=== PATIENT | female | born 1965 | race African-American/Black ===

== ENCOUNTER 2017-01-13 14:30 | Inpatient (IN) | payer BC, OTHER ==
[~2017-01-13] VITALS: Ht 152.4 cm; Wt 107.0 kg
[2017-01-13 15:22] LABS: Basophils # (auto) 0.1 uL; Basophils % (auto) 1.1 % (0.0-2.0); DEFINITIVE VIEW TRANSMISSION; Eosinophils # (auto) 0.2 uL; Eosinophils % (auto) 4.1 % (0.0-7.0); Hematocrit 29.9 % (36.0-46.0); Hemoglobin 9.6 g/dL (12.2-16.2); Lymphocytes # (auto) 1.5 uL; Lymphocytes % (auto) 27.8 % (10.0-50.0); Mean Corpuscular Hgb Conc. 31.9 g/dL (32.0-36.0); Mean Corpuscular Volume 68.9 fL (80.0-100.0); Mean Platelet Volume 9.4 fL (7.4-10.4); Monocytes # (auto) 0.3 uL; Monocytes % (auto) 5.4 % (0.0-12.0); Neutrophils # (auto) 3.3 uL; Neutrophils % (auto) 61.6 % (37.0-80.0); Platelet Count (auto) 256 10^3/uL (140-450); SUSPECT VIEW TRANSMISSION; White Blood Cell 5.4 10^3/uL (4.4-10.8)
[2017-01-13 15:24] LABS: Red Cell Distribution Width 22.3 % (11.6-16.0)
[2017-01-13] MEDS ORDERED: ASPirin 81 mg TAB PO ONE (15:30)
[2017-01-13] MEDS ORDERED: FUROSEMIDE 40 MG/4 ML VIAL IV ONE (15:30)
[2017-01-13] MEDS ORDERED: hydrALAZINE HCL 20 MG/ML VL IV ONE (15:30)
[2017-01-13] MEDS ORDERED: hydrALAZINE HCL 20 MG/ML VL IV PRN (15:45)
[2017-01-13] MEDS ORDERED: NITROGLYCERIN 0.4 MG SL TAB SL PRN (15:45)
[2017-01-13] MEDS ORDERED: MORPHINE SULF INJ 2 MG/ML SYRINGE 1ML IV PRN (15:45)
[2017-01-13 15:52] LABS: BUN/Creatinine Ratio 18.5; Bilirubin, Total 1.4 mg/dL (0.2-1.0); Calcium 8.6 mg/dL (8.5-10.1); Magnesium 2.1 mg/dL (1.6-2.6); Potassium 4.1 mmol/L (3.5-5.1); Total Protein 7.4 g/dL (6.4-8.2)
[2017-01-13 16:08] LABS: B-Type Natriuretic Peptide 1036.14 pg/mL (0-100); Temperature: 22.7 C (20.0-25.0)
[2017-01-13 18:26] LABS: Anisocytosis Moderate; Hypochromia Moderate; Microcytosis Moderate; Ovalocytes FEW; Platelet Estimate Adequate
[2017-01-13 18:27] LABS: Large Platelets FEW; Polychromasia Slight
[2017-01-13 19:45] VITALS: BP 154/102
[2017-01-13 20:00] VITALS: BP 159/100
[2017-01-13 20:27] VITALS: BP 154/102
[2017-01-13 22:00] VITALS: BP 159/100
[2017-01-13] MEDS: FUROSEMIDE 40 MG/4 ML VIAL IV SCH (22:05)
[2017-01-13] MEDS: ATORVASTATIN 20 MG TAB PO SCH (22:06)
[2017-01-13] MEDS: POTASSIUM CHL 20 Meq TABLET PO SCH (22:06)
[2017-01-13] MEDS: CARVEDILOL 12.5 MG TAB PO SCH (22:06)
[2017-01-14] MEDS ORDERED: SPIR25TA89 PO (04:36)
[2017-01-14] MEDS ORDERED: LISI-646 PO (04:36)
[2017-01-14] MEDS ORDERED: CARV12.544 PO (04:36)
[2017-01-14] MEDS ORDERED: ASPI-378 OR (04:36)
[2017-01-14] MEDS ORDERED: FURO40TA4 PO (04:36)
[2017-01-14 05:00] VITALS: BP 138/86
[2017-01-14] MEDS: FUROSEMIDE 40 MG/4 ML VIAL IV SCH (06:18)
[2017-01-14 06:43] LABS: Basophils # (auto) 0 uL; Basophils % (auto) 0.9 % (0.0-2.0); DEFINITIVE VIEW TRANSMISSION; Eosinophils # (auto) 0.2 uL; Eosinophils % (auto) 3.3 % (0.0-7.0); Hematocrit 32.5 % (36.0-46.0); Hemoglobin 10.2 g/dL (12.2-16.2); Lymphocytes # (auto) 1.1 uL; Lymphocytes % (auto) 20.4 % (10.0-50.0); Mean Corpuscular Hemoglobin 21.6 pg (28.0-32.0); Mean Corpuscular Hgb Conc. 31.4 g/dL (32.0-36.0); Mean Platelet Volume 10.1 fL (7.4-10.4); Monocytes # (auto) 0.4 uL; Neutrophils # (auto) 3.7 uL; Neutrophils % (auto) 68.4 % (37.0-80.0); Platelet Count (auto) 270 10^3/uL (140-450); SUSPECT VIEW TRANSMISSION; White Blood Cell 5.3 10^3/uL (4.4-10.8)
[2017-01-14 07:00] LABS: Calcium 9.5 mg/dL (8.5-10.1); INR 1.15 (0.9-1.15); Partial Thromboplastin Time 24.5 sec (22.64-33.71); Potassium 3.5 mmol/L (3.5-5.1)
[2017-01-14 07:03] LABS: BUN/Creatinine Ratio 14.5
[2017-01-14 07:22] LABS: Prothrombin Time 12.6 sec (9.37-12.3)
[2017-01-14 07:30] LABS: Red Cell Distribution Width 22.5 % (11.6-16.0)
[2017-01-14 08:22] LABS: Anisocytosis Moderate; Hypochromia Moderate; Microcytosis Moderate; Platelet Estimate Adequate
[2017-01-14 08:24] LABS: Burr Cells FEW; Large Platelets FEW; Ovalocytes FEW; Schistocytes FEW; Tear Drop Cells FEW
[2017-01-14 09:00] VITALS: BP 138/94
[2017-01-14] MEDS: POTASSIUM CHL 20 Meq TABLET PO SCH (09:14)
[2017-01-14] MEDS: LISINOPRIL 20 MG TAB PO SCH (09:14)
[2017-01-14] MEDS: SPIRONOLACTONE 25 MG TAB PO SCH (09:14)
[2017-01-14] MEDS: CARVEDILOL 12.5 MG TAB PO SCH ×2 (09:15→21:43)
[2017-01-14] MEDS: ASPirin 81 mg TAB PO SCH (09:15)
[2017-01-14 13:00] VITALS: BP 117/76
[2017-01-14 14:24] LABS: Urine Bilirubin Negative (Negative); Urine Blood TRACE /uL (Negative); Urine Color Yellow (Yellow); Urine Glucose Normal (Normal); Urine Ketone Negative (Negative); Urine Nitrite Negative (Negative); Urine RBC 4 /hpf (0 - 4); Urine Urobilinogen Normal (Negative); Urine pH 6.5 (5.0-8.0)
[2017-01-14 17:00] VITALS: BP 131/91
[2017-01-14] MEDS: ATORVASTATIN 20 MG TAB PO SCH (21:43)
[2017-01-14 22:00] VITALS: BP 142/88
[2017-01-14 23:30] VITALS: BP 138/73
[2017-01-15 05:00] VITALS: BP 121/88
[2017-01-15] MEDS ORDERED: POTASSIUM CHL 20 Meq TABLET PO ONE (07:15)
[2017-01-15 07:20] LABS: Potassium 3.6 mmol/L (3.5-5.1)
[2017-01-15 07:35] VITALS: BP 140/84
[2017-01-15] MEDS: SPIRONOLACTONE 25 MG TAB PO SCH (09:34)
[2017-01-15] MEDS: ASPirin 81 mg TAB PO SCH (09:34)
[2017-01-15] MEDS: LISINOPRIL 20 MG TAB PO SCH (09:35)
[2017-01-15] MEDS: CARVEDILOL 12.5 MG TAB PO SCH ×2 (09:36→22:08)
[2017-01-15] MEDS: FUROSEMIDE 40 MG/4 ML VIAL IV SCH (09:37)
[2017-01-15] MEDS: POTASSIUM CHL 20 Meq TABLET PO SCH (10:00)
[2017-01-15 12:04] VITALS: BP 149/91
[2017-01-15 15:50] VITALS: BP 122/72
[2017-01-15 20:52] VITALS: BP 143/63
[2017-01-15] MEDS: ATORVASTATIN 20 MG TAB PO SCH (22:07)
[2017-01-15 22:47] VITALS: BP 128/78
[2017-01-16 05:06] VITALS: BP 147/85
[2017-01-16 08:00] VITALS: BP 117/78
[2017-01-16] MEDS: FUROSEMIDE 40 MG/4 ML VIAL IV SCH (09:43)
[2017-01-16] MEDS: SPIRONOLACTONE 25 MG TAB PO SCH (09:43)
[2017-01-16] MEDS: CARVEDILOL 12.5 MG TAB PO SCH ×2 (09:44→22:07)
[2017-01-16] MEDS: LISINOPRIL 20 MG TAB PO SCH (09:44)
[2017-01-16] MEDS: POTASSIUM CHL 20 Meq TABLET PO SCH (09:44)
[2017-01-16] MEDS: ASPirin 81 mg TAB PO SCH (09:44)
[2017-01-16 11:23] VITALS: BP 107/66
[2017-01-16] MEDS ORDERED: LIDOCAINE 2%HCL (LOCAL ANESTH.) INJ 20ML MDV ONE (13:27)
[2017-01-16] MEDS ORDERED: IOHEXOL 350 MG/ML 100ML IJ ONE (13:27)
[2017-01-16 16:09] VITALS: BP 146/64
[2017-01-16 22:00] VITALS: BP 146/60
[2017-01-16] MEDS: ATORVASTATIN 20 MG TAB PO SCH (22:07)
[2017-01-17 04:54] VITALS: BP 102/67
[2017-01-17] MEDS ORDERED: methylPREDNISolone SOD SUCC 125 MG/2 ML VL ONE (08:01)
[2017-01-17] MEDS ORDERED: fentaNYL CITRATE 100 MCG/2 ML VL ONE (08:02)
[2017-01-17] MEDS ORDERED: diphenhdrAMINE HCL 50 MG/1 ML VL ONE (08:02)
[2017-01-17] MEDS ORDERED: MIDAZOLAM HCL 1MG/1ML-2 ML VIAL ONE (08:02)
[2017-01-17] MEDS ORDERED: FAMOTIDINE (10MG/ML) 2ML VL IV ONE (08:10)
[2017-01-17 09:21] VITALS: BP 130/96
[2017-01-17] MEDS ORDERED: SODIUM CHLORIDE 0.9% 1,000 ML IV SCH (09:22)
[2017-01-17] MEDS: POTASSIUM CHL 20 Meq TABLET PO SCH (12:25)
[2017-01-17] MEDS: LISINOPRIL 20 MG TAB PO SCH (12:27)
[2017-01-17] MEDS: SPIRONOLACTONE 25 MG TAB PO SCH (12:27)
[2017-01-17] MEDS: FUROSEMIDE 40 MG TAB PO SCH (12:28)
[2017-01-17] MEDS: ASPirin 81 mg TAB PO SCH (12:29)
[2017-01-17] MEDS: CARVEDILOL 12.5 MG TAB PO SCH ×2 (12:29→22:03)
[2017-01-17 12:35] VITALS: BP 137/91
[2017-01-17 17:00] VITALS: BP 119/58
[2017-01-17] MEDS: BOOST PLUS 8 ounce PO SCH ×2 (17:06→18:56)
[2017-01-17 20:00] VITALS: BP 142/79
[2017-01-17] MEDS: ATORVASTATIN 20 MG TAB PO SCH (22:03)
[2017-01-17 22:09] VITALS: BP 142/79
[2017-01-18 05:19] VITALS: BP 125/71
[2017-01-18 06:16] LABS: Basophils # (auto) 0 uL; DEFINITIVE VIEW TRANSMISSION; Eosinophils # (auto) 0 uL; Hematocrit 36.5 % (36.0-46.0); Hemoglobin 11.3 g/dL (12.2-16.2); Lymphocytes # (auto) 0.6 uL; Lymphocytes % (auto) 8.1 % (10.0-50.0); Mean Corpuscular Hemoglobin 21.7 pg (28.0-32.0); Mean Corpuscular Hgb Conc. 30.9 g/dL (32.0-36.0); Mean Platelet Volume 9.9 fL (7.4-10.4); Monocytes # (auto) 0.4 uL; Monocytes % (auto) 5.1 % (0.0-12.0); Neutrophils # (auto) 6.5 uL; Neutrophils % (auto) 86.8 % (37.0-80.0); Platelet Count (auto) 312 10^3/uL (140-450); White Blood Cell 7.5 10^3/uL (4.4-10.8)
[2017-01-18 06:36] LABS: Potassium 4.6 mmol/L (3.5-5.1)
[2017-01-18 06:37] LABS: Red Cell Distribution Width 22.5 % (11.6-16.0)
[2017-01-18 06:44] LABS: Albumin 3.1 g/dL (3.4-5.0); BUN/Creatinine Ratio 26.1; Calcium 9.5 mg/dL (8.5-10.1); Total Protein 7.7 g/dL (6.4-8.2)
[2017-01-18 06:48] LABS: Bilirubin, Total 0.3 mg/dL (0.2-1.0)
[2017-01-18 08:27] LABS: Anisocytosis Moderate; Platelet Estimate Adequate
[2017-01-18 08:28] LABS: Hypochromia Moderate; Microcytosis Slight; Schistocytes FEW
[2017-01-18 08:53] VITALS: BP 126/70
[2017-01-18] MEDS: BOOST PLUS 8 ounce PO SCH ×2 (09:12→12:25)
[2017-01-18] MEDS: LISINOPRIL 20 MG TAB PO SCH (09:43)
[2017-01-18] MEDS: SPIRONOLACTONE 25 MG TAB PO SCH (09:43)
[2017-01-18] MEDS: FUROSEMIDE 40 MG TAB PO SCH (09:43)
[2017-01-18] MEDS: POTASSIUM CHL 20 Meq TABLET PO SCH (09:44)
[2017-01-18] MEDS: CARVEDILOL 12.5 MG TAB PO SCH (09:44)
[2017-01-18] MEDS: ASPirin 81 mg TAB PO SCH (09:44)
[2017-01-18 11:11] VITALS: BP 126/70
[2017-01-18 13:00] VITALS: BP 111/52
== END 2017-01-18 15:00 | disposition home or self-care (01) | DRG 286 ==
LOC: ER 14:30 → TELE 14:31 → TELE-WESTW 17:47
PROVIDERS: ADMIT Internal Medicine; ATTEND Internal Medicine
PROC: 4A023N7 Measurement of Cardiac Sampling and Pressure, Left Heart, Percutaneous Approach (ICD-10-PCS; principal; 2017-01-17)
PROC: B2111ZZ Fluoroscopy of Multiple Coronary Arteries using Low Osmolar Contrast (ICD-10-PCS; 2017-01-17)
PROC: B2151ZZ Fluoroscopy of Left Heart using Low Osmolar Contrast (ICD-10-PCS; 2017-01-17)
DX: I13.0 Hypertensive heart and chronic kidney disease with heart failure and stage 1 through stage 4 chronic kidney disease, or unspecified chronic kidney disease (principal); I50.43 Acute on chronic combined systolic (congestive) and diastolic (congestive) heart failure; N17.0 Acute kidney failure with tubular necrosis; E44.0 Moderate protein-calorie malnutrition; Z68.42 Body mass index [BMI] 45.0-49.9, adult; E66.01 Morbid (severe) obesity due to excess calories; D64.9 Anemia, unspecified; E87.6 Hypokalemia; I42.0 Dilated cardiomyopathy; E78.5 Hyperlipidemia, unspecified; N18.3 Chronic kidney disease, stage 3 (moderate); I43 Cardiomyopathy in diseases classified elsewhere; Z86.73 Personal history of transient ischemic attack (TIA), and cerebral infarction without residual deficits; Z88.0 Allergy status to penicillin
CPT/HCPCS: 36415; 71010; 76775; 80048; 80053; 81001; 83735; 83880; 84484; 84702; 85025; 85610; 85730; 93005; 93306; 93458; 96374; 96375; 99291; J2250; J3490

== ENCOUNTER → 2017-02-27 | Outpatient (CLI) | payer BC ==
[~2017-02-27] MED LIST: ASPI-378 OR; CARV12.544 PO; FURO40TA4 PO; LISI-646 PO; SPIR25TA89 PO
== END | disposition home or self-care (01) ==
LOC: Rad HDHVI 10:08
PROVIDERS: ATTEND Internal Medicine Cardiovascular Disease
DX: I42.0 Dilated cardiomyopathy (principal)
CPT/HCPCS: 93306